=== PATIENT | male | born 1945 | race Caucasian/White ===

== ENCOUNTER → 2016-07-30 | Outpatient (CLI) | payer MEDICARE, BC | END | disposition home or self-care (01) | LOC: PCVCCLINIC 16:37 | PROVIDERS: ATTEND Internal Medicine | DX: I25.118 Atherosclerotic heart disease of native coronary artery with other forms of angina pectoris (principal); G45.8 Other transient cerebral ischemic attacks and related syndromes; E78.5 Hyperlipidemia, unspecified; J43.2 Centrilobular emphysema; E78.00 Pure hypercholesterolemia, unspecified; Z87.891 Personal history of nicotine dependence | CPT/HCPCS: 93005; G0463 ==

== ENCOUNTER → 2016-10-11 | Outpatient (CLI) | payer MEDICARE, BC ==
--- NOTE | 2016-10-11 10:17 | PCVCIMAG ---
APPROVED REPORT Indications CVA/TIA: Risk Factors Hyperlipidemia Doppler Spectral Velocity Analysis PSV / EDVPSV / EDV ECA (R) 94 / 21 cm/sECA (L) 89 / 19 cm/s dICA (R) 53 / 23 cm/sdICA (L) 56 / 29 cm/s Bruce (R) 56 / 23 cm/smICA (L) 61 / 25 cm/s pICA (R) 59 / 21 cm/spICA (L) 72 / 26 cm/s Bulb (R) 53 / 18 cm/sBulb (L) 86 / 35 cm/s dCCA (R) 74 / 27 cm/sdCCA (L) 86 / 35 cm/s mCCA (R) 72 / 25 cm/smCCA (L) 73 / 29 cm/s Vert (R) 38 / 16 cm/sVert (L) 52 / 23 cm/s ICA/CCA 0.80ICA/CCA 0.84 Real Time B-Mode Imaging Vert. (R)AntegradeVert. (L)Antegrade Findings The right carotid bulb has moderate heterogeneous plaque. The right proximal internal carotid artery shows <40% stenosis. The right common carotid artery shows no significant stenosis. The right external carotid artery shows no significant stenosis. The left carotid bulb has minimal plaque. The left proximal internal carotid artery shows no significant stenosis. The left common carotid artery shows no significant stenosis. The left external carotid artery shows no significant stenosis. Conclusion 1. Right internal carotid stenosis (<40%) 2. Left internal carotid artery plaquing 3. Antegrade vertebral flow
--- NOTE | 2016-10-11 14:54 | PCVCIMAG ---
EXAM: AORTOILIAC DUPLEX INDICATION: Peripheral arterial disease FINDINGS: AORTA: Suprarenal aorta measures maximum diameter of 3.0 cm. There is not a fusiform infrarenal aortic aneurysm. The infrarenal aorta measures maximum diameter of 2.7 cm. No aortic stenosis. RIGHT COMMON ILIAC ARTERY: Maximum diameter is 0.9 cm. No significant stenosis. RIGHT EXTERNAL ILIAC ARTERY: No significant stenosis. LEFT COMMON ILIAC ARTERY: Maximum diameter is 0.9 cm. No significant stenosis. LEFT EXTERNAL ILIAC ARTERY: No significant stenosis. IMPRESSION: No abdominal aortic aneurysm. No aortoiliac stenosis seen. Ectasia of the infrarenal abdominal aorta measuring maximum diameter of 2.7 cm. LOC:[id number]
== END | disposition home or self-care (01) ==
LOC: PCVCIMAG 09:17
PROVIDERS: ATTEND Internal Medicine
DX: I77.811 Abdominal aortic ectasia (principal); I65.23 Occlusion and stenosis of bilateral carotid arteries; I25.10 Atherosclerotic heart disease of native coronary artery without angina pectoris; E78.00 Pure hypercholesterolemia, unspecified; E78.5 Hyperlipidemia, unspecified; Z86.73 Personal history of transient ischemic attack (TIA), and cerebral infarction without residual deficits; J43.2 Centrilobular emphysema
CPT/HCPCS: 93880; 93978

== ENCOUNTER → 2018-09-28 | Outpatient (CLI) | payer MEDICARE, BC | END | disposition home or self-care (01) | LOC: PCVCCLINIC 10:00 | PROVIDERS: ATTEND Internal Medicine | DX: I25.10 Atherosclerotic heart disease of native coronary artery without angina pectoris (principal); E78.5 Hyperlipidemia, unspecified; J43.2 Centrilobular emphysema; G45.9 Transient cerebral ischemic attack, unspecified; C18.9 Malignant neoplasm of colon, unspecified; G47.33 Obstructive sleep apnea (adult) (pediatric); Z85.21 Personal history of malignant neoplasm of larynx; Z87.891 Personal history of nicotine dependence; Z79.82 Long term (current) use of aspirin | CPT/HCPCS: 93005; G0463 ==

== ENCOUNTER → 2018-10-05 | Outpatient (CLI) | payer MEDICARE, BC ==
--- NOTE | 2018-10-05 10:19 | PCVCIMAG ---
APPROVED REPORT Study performed: 10/05/2018 09:30:23 EXAM: Comprehensive 2D, Doppler, and color-flow Echocardiogram Patient Location: Echo lab Status: routine BSA: 2.04 HR: 55 bpmBP: 104/68 mmHg Rhythm: NSR Other Information Study Quality: Adequate Risk Factors: Cardiac Risk Factors: HTN, Hyperlipidemia, Smoking Indications Emphysema, History of laryngeal 2D Dimensions IVSd: 13.03 (7-11mm)LVOT Diam: 23.15 (18-24mm) LVDd: 44.28 mm PWd: 10.79 (7-11mm)Ascending Ao: 40.52 (22-36mm) LVDs: 33.59 (25-40mm) Left Atrium: 39.87 (27-40mm) Aortic Root: 30.22 mm LV Single Plane 2CH: 63.17 % Volumes Left Atrial Volume (Systole) Single Plane 4CH: 60.34 mLSingle Plane 2CH: 59.53 mL LA ESV Index: 31.00 mL/m2 Aortic Valve AoV Peak Aurelio.: 1.14 m/s AO Peak Gr.: 5.17 mmHg Mitral Valve E/A Ratio: 1.6 MV Decel. Time: 216.99 ms MV E Max Aurelio.: 0.54 m/s MV A Aurelio.: 0.34 m/s TDI E/Lateral E': 7.71E/Medial E': 7.71 Medial E' Aurelio.: 0.07 m/s Lateral E' Aurelio.: 0.07 m/s Pulmonary Valve PV Peak Gr.: 0.92 mmHg Pulmonary Vein P Vein S: 0.68 m/sP Vein A: 0.38 m/s P Vein D: 0.48 m/sP Vein A Dur.: 96.9 msec P Vein S/D Ratio: 1.42 Tricuspid Valve TR Peak Aurelio.: 2.39 m/s TR Peak Gr.: 22.77 mmHg Left Ventricle The left ventricle is normal size. There is normal LV segmental wall motion. There is normal left ventricular wall thickness. Left ventricular systolic function is normal. The left ventricular ejection fraction is within the normal range. LVEF is 60%. Moderate diastolic dysfunction is present (pseudonormal filling). Right Ventricle The right ventricle is normal size. The right ventricular systolic function is normal. Atria Left atrium is mildly dilated. Right atrium is mildly dilated. Aortic Valve The aortic valve is normal in structure. No aortic regurgitation is present. There is no aortic valvular stenosis. Mitral Valve The mitral valve is normal in structure. Mild mitral regurgitation. No evidence of mitral valve stenosis. Tricuspid Valve The tricuspid valve is normal in structure. Mild tricuspid regurgitation. Pulmonary artery pressure is 30 mmHg. Pulmonic Valve The pulmonary valve is normal in structure. There is no pulmonic valvular regurgitation. Great Vessels The aortic root is normal in size. The ascending aorta is mildly dilated (4.2cm). IVC is normal in size and collapses >50% with inspiration. Pericardium There is no pericardial effusion. <Conclusion> Left ventricular systolic function is normal. There is normal LV segmental wall motion. LVEF is 60%. Moderate diastolic dysfunction Both atria are mildly dilated. The aortic valve is normal in structure. No aortic regurgitation or stenosis The mitral valve is normal in structure. Mild mitral regurgitation. Mild tricuspid regurgitation. Pulmonary artery pressure of 30 mmHg. The ascending aorta is mildly dilated (4.2cm). There is no pericardial effusion.
== END | disposition home or self-care (01) ==
LOC: PCVCIMAG 09:26
PROVIDERS: ATTEND Internal Medicine
DX: I08.1 Rheumatic disorders of both mitral and tricuspid valves (principal); I25.118 Atherosclerotic heart disease of native coronary artery with other forms of angina pectoris; G45.9 Transient cerebral ischemic attack, unspecified; E78.00 Pure hypercholesterolemia, unspecified
CPT/HCPCS: 93306